=== PATIENT | male | born 1940 | race Caucasian/White ===

== ENCOUNTER 2017-11-24 06:13 | Emergency (ER) | payer MEDICARE, MEDICAID ==
[~2017-11-24] VITALS: Ht 177.8 cm; Wt 99.8 kg
--- NOTE | 2017-11-24 06:13 | NUR ---
to bed 9 bib paramedics c/o L nostril bleeding. pt aaox4 no acute distress noted, resp even and unlabored. er md at bedside to eval pt with orders received. will carry out orders.
--- NOTE | 2017-11-24 06:19 | NUR ---
Sunitha nostril merocel packing inserted by jh lyons.
[2017-11-24 06:57] LABS: BASOPHILS % (AUTO) 0.6 % (0.0-2.0); EOSINOPHILS % (AUTO) 3.9 % (0.0-6.0); HEMATOCRIT 42 % (39-51); HEMOGLOBIN 14.4 g/dL (13.5-17.5); LYMPHOCYTES # (AUTO) 2.9 /CMM (0.8-4.8); LYMPHOCYTES % (AUTO) 35.4 % (20.0-44.0); MEAN CORPUSCULAR HGB CONC 34 g/dl (31.0-36.0); MEAN CORPUSCULAR VOLUME 85 fL (80-96); MONOCYTES # (AUTO) 0.8 /CMM (0.1-1.30); MONOCYTES % (AUTO) 9.5 % (2.0-12.0); NEUTROPHILS # (AUTO) 4.1 /CMM (1.8-8.9); NEUTROPHILS % (AUTO) 50.6 % (43.0-81.0); PLATELET COUNT (AUTO) 170 /CMM (150-450); RED BLOOD CELL COUNT(AUTO) 4.89 MIL/uL (4.5-6.0); WHITE BLOOD COUNT (AUTO) 8.1 K/uL (4.3-11.0)
[2017-11-24] MEDS ORDERED: IV NS 0.9% 500 ML BAG IV ONE (07:00)
--- NOTE | 2017-11-24 07:03 | NUR ---
PT RESTING QUIETLY, NO ACUTE DISTRESS NOTED, RESP EVEN AND UNLABORED. NO ACUTE BLEEDING NOTED AT THIS TIME.
[2017-11-24 07:12] LABS: CALCIUM, SERUM 9.2 mg/dL (8.5-10.1); CARBON DIOXIDE 27 mmol/L (21-32); CHLORIDE 103 mmol/L (98-107); CREATININE 1.2 mg/dL (0.6-1.3); GLUCOSE 128 mg/dL (74-106); POTASSIUM 3.4 mmol/L (3.5-5.1); SODIUM SERUM 140 mmol/L (136-145); UREA NITROGEN, BLOOD 22 mg/dL (7-18)
--- NOTE | 2017-11-24 07:13 | NUR ---
SOB WITH LOW O2 SAT PER EMS REPORT
[2017-11-24 08:00] VITALS: BP 146/69
--- NOTE | 2017-11-24 08:00 | NUR ---
IV removed. Catheter intact and site benign. Pressure and 4x4 applied to site. No bleeding noted. Patient discharged to home in stable condition. Written and verbal after care instructions given. Patient verbalizes understanding of instruction.
== END 2017-11-24 08:01 | disposition home or self-care (01) ==
LOC: ER 06:17
DX: R04.0 Epistaxis (principal); I10 Essential (primary) hypertension
CPT/HCPCS: 36415; 80048-TC; 85025-TC; 85730-TC; A4606; J7040; Z7610

== ENCOUNTER 2025-03-14 16:29 | Emergency (ER) | payer MEDICARE, OTHER ==
[~2025-03-14] VITALS: Ht 180.3 cm; Wt 99.8 kg
[2025-03-14 17:11] LABS: PLATELET COUNT (AUTO) 143 K/uL (150-450); RED BLOOD CELL COUNT(AUTO) 4.71 MIL/uL (4.5-6.0); RED CELL DISTRIBUTION WIDTH 16.6 % (11.5-15.0); WHITE BLOOD COUNT (AUTO) 6.9 K/uL (4.3-11.0)
[2025-03-14 17:24] LABS: CALCIUM, SERUM 8.5 mg/dL (8.5-10.1); CREATININE 1.2 mg/dL (0.6-1.3); SODIUM SERUM 143.0 mmol/L (136-145); UREA NITROGEN, BLOOD 22.0 mg/dL (7-18)
[2025-03-14 17:29] LABS: APPEARANCE,URINE CLOUDY (CLEAR); BLOOD, URINE 2+ Ery/uL (NEGATIVE); LEUKOCYTE ESTERASE ,URINE 1+ (NEGATIVE); NITRITE, URINE POSITIVE (NEGATIVE); UGLUCOSE NEGATIVE (NEGATIVE)
[2025-03-14 17:30] LABS: INR 1.13 (0.91-1.10)
[2025-03-14 17:41] LABS: ADD URINE CULTURE YES; SQUAMOUS EPITHELIAL CELL,UR Few /HPF (None Seen)
[2025-03-14] MEDS ORDERED: CEPH500C2 PO (17:53)
[2025-03-14 18:45] VITALS: BP 134/79; TEMP 98; O2SAT 94
== END 2025-03-14 18:45 | disposition home or self-care (01) ==
LOC: ER 16:34
DX: N39.0 Urinary tract infection, site not specified (principal); R31.9 Hematuria, unspecified; R51.9 Headache, unspecified; I10 Essential (primary) hypertension; Z79.01 Long term (current) use of anticoagulants
CPT/HCPCS: 36415; 80048-TC; 81001; 85025-TC; 85730-TC; 87086-TC